=== PATIENT | female | born 1995 | race Two or more races ===

== ENCOUNTER 2017-12-06 15:46 | Emergency (ER) | payer MEDICAID ==
[~2017-12-06] VITALS: Ht 162.6 cm; Wt 56.7 kg
[2017-12-06 18:55] VITALS: BP 119/73
== END 2017-12-06 19:03 | disposition home or self-care (01) ==
LOC: ER 15:46
DX: S82.402A Unspecified fracture of shaft of left fibula, initial encounter for closed fracture (principal); Z88.2 Allergy status to sulfonamides; W19.XXXA Unspecified fall, initial encounter; Y93.89 Activity, other specified; Y99.8 Other external cause status; Y92.89 Other specified places as the place of occurrence of the external cause
CPT/HCPCS: 29515; 73610